=== PATIENT | female | born 1985 | race African-American/Black ===

== ENCOUNTER 2017-03-15 10:41 | Emergency (ER) | payer MEDICAID ==
[~2017-03-15] VITALS: Ht 167.6 cm; Wt 102.3 kg
[~2017-03-15 10:41] MED LIST: ALEVE 220MG220 MG; INDERAL 10MG10 MG PO; NORCO 325 MG-51 TAB PO; PRINIVIL5 MG; TOPROL XL 25MG25 MG PO; ZOFRAN 4MG T4 MG/TAB PO; ZOFRAN ODT4 MG PO
[2017-03-15 10:47] VITALS: PULSE 61; TEMP 99.2
[2017-03-15] MEDS ORDERED: [UNRECOGNIZED DRUG - REMARK] PO (11:11)
[2017-03-15] MEDS ORDERED: ANTIBIOTIC PO (11:12)
[2017-03-15] MEDS ORDERED: [UNRECOGNIZED DRUG - REMARK] PO (11:12)
== END 2017-03-15 11:30 | disposition home or self-care (01) ==
LOC: COL.ER 10:41
DX: S61.215A Laceration without foreign body of left ring finger without damage to nail, initial encounter (principal); W26.8XXA Contact with other sharp object(s), not elsewhere classified, initial encounter

== ENCOUNTER 2017-08-18 13:09 | Emergency (ER) | payer SELFPAY ==
[~2017-08-18] VITALS: Ht 167.6 cm; Wt 100.0 kg
[~2017-08-18 13:09] MED LIST changes: +ANTIBIOTIC PO; +[UNRECOGNIZED DRUG - REMARK] PO; +[UNRECOGNIZED DRUG - REMARK] PO
[2017-08-18 13:12] VITALS: BP 167/77; PULSE 73; TEMP 98.6
== END 2017-08-18 14:04 | disposition home or self-care (01) ==
LOC: COL.ER 13:09
DX: M54.9 Dorsalgia, unspecified (principal); F41.9 Anxiety disorder, unspecified; V49.9XXA Car occupant (driver) (passenger) injured in unspecified traffic accident, initial encounter

== ENCOUNTER 2018-10-23 16:04 | Emergency (ER) | payer SELFPAY ==
[~2018-10-23] VITALS: Ht 165.1 cm; Wt 101.8 kg
[2018-10-23 16:15] VITALS: BP 137/79; TEMP 98.2
[2018-10-23] MEDS ORDERED: PREDNISONE20 MG PO (17:28)
[2018-10-23] MEDS ORDERED: PROAIR HFA0.09 MG/AC IH (17:28)
[2018-10-23] MEDS ORDERED: ZITHROMAX Z PA250 MG PO (17:28)
[2018-10-23 17:52] VITALS: PULSE 66
== END 2018-10-23 17:55 | disposition home or self-care (01) ==
LOC: COL.ER 16:04
DX: J45.901 Unspecified asthma with (acute) exacerbation (principal); J06.9 Acute upper respiratory infection, unspecified; J20.9 Acute bronchitis, unspecified; G43.909 Migraine, unspecified, not intractable, without status migrainosus; F17.210 Nicotine dependence, cigarettes, uncomplicated
CPT/HCPCS: J1885

== ENCOUNTER 2019-02-16 05:21 | Emergency (ER) | payer SELFPAY ==
[~2019-02-16] VITALS: Ht 167.6 cm; Wt 104.5 kg
[~2019-02-16 05:21] MED LIST changes: +CEPHALEXIN500 M1 PO; +PREDNISONE20 MG PO; +PROAIR HFA0.09 MG/AC IH; +ZITHROMAX Z PA250 MG PO
[2019-02-16] MEDS ORDERED: REXULTI1 MG PO (05:28)
[2019-02-16] MEDS ORDERED: AMBIEN 5MG TABLE5 MG PO (05:28)
[2019-02-16] MEDS ORDERED: MINIPRESS2 MG (05:28)
[2019-02-16] MEDS ORDERED: PEN-VEE K500 MG PO (05:42)
[2019-02-16] MEDS ORDERED: NORCO 325 MG-51 TAB PO (05:42)
[2019-02-16 05:55] VITALS: BP 132/78; PULSE 69; TEMP 98.1
== END 2019-02-16 06:00 | disposition home or self-care (01) ==
LOC: COL.ER 05:21
DX: K02.9 Dental caries, unspecified (principal); I10 Essential (primary) hypertension

== ENCOUNTER 2019-05-23 09:48 | Emergency (ER) | payer SELFPAY ==
[~2019-05-23] VITALS: Ht 167.6 cm; Wt 111.4 kg
[~2019-05-23 09:48] MED LIST changes: +AMBIEN 5MG TABLE5 MG PO; +MINIPRESS2 MG; +PEN-VEE K500 MG PO; +REXULTI1 MG PO
[2019-05-23 10:03] VITALS: TEMP 97.6
[2019-05-23 10:37] LABS: COLLECTION METHOD CLEAN CATCH
[2019-05-23 10:48] LABS: MUCOUS Present /lpf; PH 7 (5-8); SQUAMOUS EPITHELIAL >50 /hpf; URINE APPEARANCE Cloudy; URINE BACTERIA Rare /hpf; URINE BILIRUBIN Negative (NEGATIVE); URINE BLOOD Negative (NEGATIVE); URINE COLOR Yellow; URINE GLUCOSE Negative (NEGATIVE); URINE KETONE Negative (NEGATIVE); URINE LEUKOCYTE ESTERASE Negative (NEGATIVE); URINE NITRATE Negative (NEGATIVE); URINE PROTEIN(semi-quant) Negative (NEGATIVE); URINE RBC None Seen /hpf; URINE UROBILINOGEN Negative (NEGATIVE)
[2019-05-23 10:53] LABS: ALANINE AMINOTRANSFERASE 36 U/L (9-52); ALBUMIN 3.7 gm/dL (3.5-5.0); ALKALINE PHOSPHATASE 51 U/L (50-136); ANION GAP 5 mmol/L (7-16); AST,SGOT 25 U/L (15-37); BASO % 0.3 % (0.0-2.0); BILIRUBIN,TOTAL 0.3 mg/dL (0.0-1.0); BLOOD UREA NITROGEN 9 mg/dL (7-17); CALCIUM 8.6 mg/dL (8.4-10.2); CARBON DIOXIDE 28 mmol/L (22-30); CHLORIDE 108 mmol/L (98-107); CREATININE, serum 0.94 (0.52-1.25); EOS # 0.1 (0.0-0.7); EOS % 1.9 % (0-4.0); GLUCOSE 84 mg/dL (74-106); GRAN # 3.3 (1.4-6.5); HEMATOCRIT 39.8 % (37.0-47.0); HEMOGLOBIN 12.8 g/dl (12.5-16.0); LIPASE 110 U/L (23-300); LYMPH # 2.3 (1.2-3.4); LYMPH % 37.8 % (20.0-51.0); MAGNESIUM 1.9 mg/dL (1.6-2.3); MEAN CELL VOLUME 93 fl (80.0-100.0); MEAN CORPUSCULAR HEMOGLOBIN 30 pg (27.0-31.0); MEAN CORPUSCULAR HGB CONC 32 g/dl (33.0-37.0); MEAN PLATELET VOLUME 10.3 fl (7.4-10.4); MONO # 0.4 (0.1-0.6); MONO % 5.8 % (1.7-9.3); PLATELET COUNT 215 K/mm3 (130-400); POTASSIUM 3.9 mmol/L (3.4-5.0); RED BLOOD COUNT 4.26 M/mm3 (4.10-5.30); REDCELL DISTRIBUTION WIDTH-CV 14.5 % (11.5-14.5); SODIUM 140 mmol/L (137-145); TOTAL PROTEIN 6.6 gm/dL (6.4-8.2)
[2019-05-23 10:57] LABS: C-REACTIVE PROTEIN < 0.5 mg/dL (0.0-0.9)
[2019-05-23] MEDS ORDERED: NORCO 325 MG-51 TAB PO (12:26)
[2019-05-23 12:43] VITALS: BP 153/93; PULSE 62
== END 2019-05-23 12:43 | disposition home or self-care (01) ==
LOC: COL.ER 09:48
PROVIDERS: Emergency Medicine
DX: R10.2 Pelvic and perineal pain (principal); F41.9 Anxiety disorder, unspecified; F32.9 Major depressive disorder, single episode, unspecified
CPT/HCPCS: J1885; J7030

== ENCOUNTER 2019-07-30 01:24 | Emergency (ER) | payer SELFPAY ==
[~2019-07-30] VITALS: Ht 167.6 cm; Wt 104.5 kg
[2019-07-30] MEDS ORDERED: PEN-VEE K500 MG PO (02:34)
[2019-07-30] MEDS ORDERED: PROAIR HFA0.09 MG/AC IH (02:34)
[2019-07-30 02:50] VITALS: BP 132/76; PULSE 82; TEMP 97.1
== END 2019-07-30 02:57 | disposition home or self-care (01) ==
LOC: COL.ER 01:24
DX: K08.89 Other specified disorders of teeth and supporting structures (principal); J45.909 Unspecified asthma, uncomplicated; G43.909 Migraine, unspecified, not intractable, without status migrainosus; F17.210 Nicotine dependence, cigarettes, uncomplicated; F43.10 Post-traumatic stress disorder, unspecified

== ENCOUNTER 2020-04-25 14:33 | Emergency (ER) | payer SELFPAY ==
[~2020-04-25] VITALS: Ht 167.6 cm; Wt 104.5 kg
[2020-04-25 14:40] VITALS: TEMP 97.7
[2020-04-25 15:26] VITALS: BP 120/69; PULSE 64
== END 2020-04-25 15:41 | disposition home or self-care (01) ==
LOC: COL.ER 14:33
DX: S60.021A Contusion of right index finger without damage to nail, initial encounter (principal); F17.200 Nicotine dependence, unspecified, uncomplicated; W23.1XXA Caught, crushed, jammed, or pinched between stationary objects, initial encounter

== ENCOUNTER 2020-12-12 22:06 | Emergency (ER) | payer OTHER ==
[~2020-12-12] VITALS: Ht 167.6 cm; Wt 104.5 kg
[2020-12-12 22:20] VITALS: TEMP 99.1
[2020-12-12 22:51] LABS: BASO % 0.3 % (0.0-2.0); EOS # 0.2 (0.0-0.7); EOS % 1.6 % (0-4.0); GRAN # 6.4 (1.4-6.5); GRAN % 69.2 % (42.2-75.2); HEMOGLOBIN 11.7 g/dl (12.5-16.0); LYMPH # 2.1 (1.2-3.4); LYMPH % 22.2 % (20.0-51.0); MEAN CELL VOLUME 87 fl (80.0-100.0); MEAN CORPUSCULAR HEMOGLOBIN 29 pg (27.0-31.0); MEAN CORPUSCULAR HGB CONC 33 g/dl (33.0-37.0); MEAN PLATELET VOLUME 9.7 fl (7.4-10.4); MONO # 0.6 (0.1-0.6); MONO % 6.4 % (1.7-9.3); PLATELET COUNT 317 K/mm3 (130-400); RED BLOOD COUNT 4.05 M/mm3 (4.10-5.30); REDCELL DISTRIBUTION WIDTH-CV 14.3 % (11.5-14.5)
[2020-12-12 22:57] LABS: HEMATOCRIT 35.2 % (37.0-47.0)
[2020-12-12 23:04] LABS: ALBUMIN 4.2 gm/dL (3.5-5.0); BILIRUBIN,TOTAL 0.3 mg/dL (0.0-1.0); C-REACTIVE PROTEIN 1.3 mg/dL (0.0-0.9); CALCIUM 8.8 mg/dL (8.4-10.2); CREATININE, serum 0.97 (0.52-1.25); POTASSIUM 3.8 mmol/L (3.4-5.0); TOTAL PROTEIN 7.8 gm/dL (6.4-8.2)
[2020-12-12 23:34] LABS: COLLECTION METHOD CLEAN CATCH
[2020-12-12 23:40] LABS: PH 6 (5-8); URINE APPEARANCE Hazy; URINE BACTERIA Rare /hpf; URINE BILIRUBIN Negative (NEGATIVE); URINE BLOOD Negative (NEGATIVE); URINE COLOR Yellow; URINE GLUCOSE Negative (NEGATIVE); URINE KETONE Negative (NEGATIVE); URINE LEUKOCYTE ESTERASE Negative (NEGATIVE); URINE NITRATE Negative (NEGATIVE); URINE PROTEIN(semi-quant) Negative (NEGATIVE); URINE RBC 0-2 /hpf; URINE UROBILINOGEN Negative (NEGATIVE)
[2020-12-13 01:56] VITALS: BP 157/84; PULSE 77
== END 2020-12-13 01:56 | disposition home or self-care (01) ==
LOC: COL.ER 22:06
PROVIDERS: Nurse Practitioner
DX: R53.83 Other fatigue (principal); R06.02 Shortness of breath; I10 Essential (primary) hypertension; F17.210 Nicotine dependence, cigarettes, uncomplicated; Z79.899 Other long term (current) drug therapy; Z20.822 Contact with and (suspected) exposure to COVID-19
CPT/HCPCS: J1885; J2405; J7030

== ENCOUNTER 2021-03-05 20:28 | Emergency (ER) | payer SELFPAY ==
[~2021-03-05] VITALS: Ht 165.1 cm; Wt 106.8 kg
[2021-03-05 21:22] VITALS: TEMP 98.4
[2021-03-05] MEDS ORDERED: PEN-VEE K500 MG PO (22:23)
[2021-03-05 23:00] VITALS: BP 132/90; PULSE 80
== END 2021-03-05 23:02 | disposition home or self-care (01) ==
LOC: COL.ER 20:28
DX: K08.89 Other specified disorders of teeth and supporting structures (principal); Z87.891 Personal history of nicotine dependence

== ENCOUNTER 2022-01-01 22:55 | Emergency (ER) | payer SELFPAY ==
[~2022-01-01] VITALS: Ht 167.6 cm; Wt 116.4 kg
[2022-01-01 23:07] VITALS: TEMP 97.4
[2022-01-01] MEDS ORDERED: AMOXICILLIN 8751 TAB PO (23:35)
[2022-01-02 00:07] VITALS: BP 148/78; PULSE 76
== END 2022-01-02 00:07 | disposition home or self-care (01) ==
LOC: COL.ER 22:55
DX: K08.89 Other specified disorders of teeth and supporting structures (principal); G43.909 Migraine, unspecified, not intractable, without status migrainosus; Z28.310 Unvaccinated for COVID-19